=== PATIENT | female | born 1990 | race Two or more races ===

== ENCOUNTER 2019-10-26 13:40 | Inpatient (IN) ==
[2019-10-26] MEDS ORDERED: DEXTROSE 10% 250 ML BAG IV PRN (18:06)
[2019-10-26] MEDS ORDERED: GLUCAGON 1 MG VIAL IM PRN (18:06)
[2019-10-26] MEDS: BETAMETH SODIUM PHOS/ACETATE 30 MG/5 ML VIAL IM SCH (18:46)
[2019-10-26] MEDS ORDERED: ONDANSETRON 4 MG/2 ML VIAL IV PRN (19:12)
[2019-10-26 20:02] LABS: Basophils % 0.3 % (0.0-0.8); Eosinophils # 0.1 10*3/uL (0.0-0.87); Eosinophils % 0.6 % (0.00-10.9); Hematocrit 41.7 VOL% (35.7-47.0); Hemoglobin 14.1 GM/DL (12.0-16.0); Immature Granulocytes % 0.6 %; Immature Granulocytes Absolute 0.06 #; Lymphocytes # 1.5 10*3/uL (1.4-4.0); Lymphocytes % 15.7 % (21.3-54.2); Mean Corpuscular HGB Conc 33.8 GM/DL (32-36); Mean Corpuscular Volume 89.7 FL (87-102); Mean Platelet Volume 13.1 FL (9.6-12.0); Monocytes % 8.5 % (1.7-12.7); Neutrophils % 74.3 % (38.7-73.9); Platelet Count 244 T/CUMM (130-400); Red Blood Count 4.65 MC/CUMM (3.8-5.5); Red Cell Distribution Width 13.4 % (9.3-17.3); White Blood Count 9.5 T/CUMM (4-12)
[2019-10-26 20:46] LABS: Bilirubin,Total 0.6 MG/DL (0.2-1.0); Calcium 9.2 MG/DL (8.5-10.1); Osmolality,Calculated 273.7 MOS/KG (273-304); Total Protein 7.9 G/DL (6.4-8.3)
[2019-10-26] MEDS: LACTATED RINGERS 1,000 ML IV SCH (22:17)
[2019-10-27] MEDS ORDERED: DEXTROSE 50% 25 GM/50 ML SYRINGE IV PRN (03:55)
[2019-10-27] MEDS ORDERED: INSULIN REGULAR 100 UNIT/ML SUBCUT SCH (06:00)
[2019-10-27] MEDS: LACTATED RINGERS 1,000 ML IV SCH ×2 (07:35→18:40)
[2019-10-27] MEDS: BETAMETH SODIUM PHOS/ACETATE 30 MG/5 ML VIAL IM SCH (18:41)
[2019-10-28] MEDS: LACTATED RINGERS 1,000 ML IV SCH (15:09)
[2019-10-28] MEDS ORDERED: LACTATED RINGERS 1,000 ML IV SCH (15:30)
[2019-10-29] MEDS ORDERED: ceFAZolin 2,000 MG in PREMIX 1 EACH IV ONE (08:28)
[2019-10-29] MEDS ORDERED: LACTATED RINGERS 1,000 ML IV ONE (08:28)
[2019-10-29] MEDS ORDERED: FAMOTIDINE 20 MG/2 ML VIAL IV ONE (08:28)
[2019-10-29] MEDS ORDERED: CITRIC ACID/SODIUM CITRATE 30 ML UDCUP PO ONE (08:28)
[2019-10-29 08:53] LABS: Basophils % 0.2 % (0.0-0.8); Eosinophils # 0.1 10*3/uL (0.0-0.87); Eosinophils % 0.5 % (0.00-10.9); Immature Granulocytes % 0.6 %; Immature Granulocytes Absolute 0.06 #; Lymphocytes # 1.7 10*3/uL (1.4-4.0); Mean Corpuscular HGB Conc 32.5 GM/DL (32-36); Mean Corpuscular Volume 92.6 FL (87-102); Mean Platelet Volume 12.4 FL (9.6-12.0); Monocytes % 12.1 % (1.7-12.7); Neutrophils % 68.6 % (38.7-73.9); Platelet Count 237 T/CUMM (130-400); Red Blood Count 4.32 MC/CUMM (3.8-5.5); Red Cell Distribution Width 13.8 % (9.3-17.3); White Blood Count 9.4 T/CUMM (4-12)
[2019-10-29] MEDS ORDERED: OXYTOCIN 40 UNIT in LACTATED RINGERS 1,000 ML IV SCH (09:00)
[2019-10-29 10:13] LABS: Apearance,Urine CLEAR (Clear); Bacteria,Urine Occasional /HPF (Few); Bilirubin,Urine Negative (Negative); Blood, Urine Negative (Negative); Glucose,Urine (UA) Negative (Negative); Ketones,Urine Negative (Negative); Nitrite,Urine Negative (Negative); Protein,Urine Negative; RBC,Urine <1 /HPF (0-4); Squamous Epithelial Cell,Urine Occasional /HPF (0-10); Urine Color Colorless (Yellow); Urine Specific Gravity 1.004 (1.001-1.035); Urine Urobilinogen < 2.0 EU/DL (0.2-1.0); WBC,Urine <1 /HPF (0-6)
[2019-10-29 10:15] LABS: Cord Arterial Blood HCO3 23.1 MMOL/L
[2019-10-29] MEDS ORDERED: BUPIVACAINE SPINAL 0.75% 2 ML AMP SPINAL ONE (10:57)
[2019-10-29] MEDS ORDERED: PHENYLEPHRINE 1 MG/10 ML SYRINGE IV ONE (10:58)
[2019-10-29] MEDS ORDERED: MORPHINE 10 MG/10 ML VIAL ONE (10:58)
[2019-10-29] MEDS ORDERED: ONDANSETRON 4 MG/2 ML VIAL ONE (10:58)
[2019-10-29] MEDS ORDERED: DEXAMETHASONE 4 MG/1 ML VIAL ONE (10:58)
[2019-10-29] MEDS ORDERED: ROPIVACAINE 0.5% 30 ML VIAL ONE (11:01)
[2019-10-29] MEDS ORDERED: OXYTOCIN/LR 20 UNIT/1,000 ML BAG IV ONE (11:53)
[2019-10-29] MEDS ORDERED: ACETAMINOPHEN 325 MG TABLET PO PRN (14:05)
[2019-10-29] MEDS ORDERED: RHO(D) IMMUNE GLOBULIN 300 MCG SYRINGE IM ONE (14:05)
[2019-10-29] MEDS ORDERED: SIMETHICONE CHEW 80 MG TABLET PO PRN (14:05)
[2019-10-29] MEDS: KETOROLAC 30 MG/1 ML VIAL IV SCH ×2 (16:30→22:31)
[2019-10-29] MEDS: ceFAZolin 1,000 MG in SYRINGE 1 EACH IV SCH (16:50)
[2019-10-29] MEDS: DOCUSATE SODIUM 100 MG CAPSULE PO SCH (21:46)
[2019-10-30] MEDS ORDERED: SODIUM CHLORIDE 0.9% 100 ML IV ONE (00:15)
[2019-10-30] MEDS: ceFAZolin 1,000 MG in SYRINGE 1 EACH IV SCH (00:27)
[2019-10-30] MEDS: KETOROLAC 30 MG/1 ML VIAL IV SCH (04:34)
[2019-10-30 05:26] LABS: Basophils % 0.2 % (0.0-0.8); Eosinophils % 0.4 % (0.00-10.9); Hematocrit 33.5 VOL% (35.7-47.0); Hemoglobin 10.9 GM/DL (12.0-16.0); Immature Granulocytes % 0.5 %; Immature Granulocytes Absolute 0.06 #; Lymphocytes % 17.9 % (21.3-54.2); Mean Corpuscular HGB Conc 32.5 GM/DL (32-36); Mean Corpuscular Volume 91.5 FL (87-102); Mean Platelet Volume 11.6 FL (9.6-12.0); Monocytes % 9.7 % (1.7-12.7); Neutrophils % 71.3 % (38.7-73.9); Platelet Count 207 T/CUMM (130-400); Red Blood Count 3.66 MC/CUMM (3.8-5.5); Red Cell Distribution Width 13.4 % (9.3-17.3); White Blood Count 11.1 T/CUMM (4-12)
[2019-10-30] MEDS: LACTATED RINGERS 1,000 ML IV SCH ×2 (05:59→06:00)
[2019-10-30] MEDS ORDERED: INFLUENZA VIRUS VACCINE 0.5 ML SYRINGE IM ONE (08:00)
[2019-10-30] MEDS: MAGNESIUM HYDROXIDE SUSP 30 ML UDCUP PO PRN ×2 (08:22→21:02)
[2019-10-30] MEDS: METOCLOPRAMIDE 10 MG TABLET PO SCH ×2 (08:24→16:18)
[2019-10-30] MEDS: MULTIVITAMIN (PRENATAL) TABLET PO SCH (08:24)
[2019-10-30] MEDS: DOCUSATE SODIUM 100 MG CAPSULE PO SCH ×2 (08:25→21:02)
[2019-10-30] MEDS ORDERED: KETOROLAC 30 MG/1 ML VIAL IV ONE (10:30)
[2019-10-30] MEDS: IBUPROFEN 800 MG TABLET PO SCH ×2 (13:17→21:02)
[2019-10-31] MEDS: METOCLOPRAMIDE 10 MG TABLET PO SCH ×3 (00:22→16:01)
[2019-10-31] MEDS: IBUPROFEN 800 MG TABLET PO SCH ×3 (05:53→21:47)
[2019-10-31] MEDS: DOCUSATE SODIUM 100 MG CAPSULE PO SCH ×2 (08:32→21:32)
[2019-10-31] MEDS: MULTIVITAMIN (PRENATAL) TABLET PO SCH (08:33)
[2019-10-31] MEDS: MAGNESIUM HYDROXIDE SUSP 30 ML UDCUP PO PRN (08:33)
[2019-10-31] MEDS ORDERED: BISACODYL 10 MG SUPP RECTAL PRN (20:38)
[2019-11-01] MEDS: IBUPROFEN 800 MG TABLET PO SCH ×2 (06:05→14:14)
[2019-11-01] MEDS: METOCLOPRAMIDE 10 MG TABLET PO SCH ×2 (06:05→08:48)
[2019-11-01 07:28] VITALS: BP 111/71
[2019-11-01] MEDS: DOCUSATE SODIUM 100 MG CAPSULE PO SCH (08:48)
[2019-11-01] MEDS: MULTIVITAMIN (PRENATAL) TABLET PO SCH (08:48)
[2019-11-01] MEDS ORDERED: INFLUENZA VIRUS VACCINE 0.5 ML SYRINGE IM ONE (12:26)
== END 2019-11-01 14:25 | disposition home or self-care (01) | DRG 786 ==
LOC: N.LDOUT 13:40 → N.LD 13:45 → N.OB 10-29 13:45
PROVIDERS: ADMIT Obstetrics & Gynecology; ATTEND Obstetrics & Gynecology
PROC: LDCSECT (ICD-10-PCS; 2019-10-29 08:00)